=== PATIENT | male | born 1955 | race Caucasian/White ===

== ENCOUNTER 2018-12-17 06:50 | Emergency (ER) | payer OTHER ==
[2018-12-17 07:21] VITALS: BMI 32.0
[2018-12-17] MEDS ORDERED: MAG HYDROX/AL HYDROX/SIMETH 30 ML UNIT-DOSE CUP PO ONE (07:40)
[2018-12-17] MEDS ORDERED: ACETAMINOPHEN 1000 MG/100 ML VIAL (NON FORMULARY) IVPB ONE (07:41)
[2018-12-17] MEDS ORDERED: MAG HYDROX/AL HYDROX/SIMETH 30 ML UNIT-DOSE CUP ONE (07:44)
[2018-12-17] MEDS ORDERED: ACETAMINOPHEN INJECTION 100 ML IVPB ONE (07:44)
--- NOTE | 2018-12-17 07:51 | PDOC ---
*Physical Exam - Vital Signs Last Vital Signs Temp Pulse Resp BP Pulse Ox 98.4 F 90 18 153/88 97 12/17/18 07:19 12/17/18 07:19 12/17/18 07:19 12/17/18 07:19 12/17/18 07:19 ED Treatment Course - LABORATORY CBC & Chemistry Diagram: 12/17/18 08:00 12/17/18 08:00 Medical Decision Making - Medical Decision Making 12/17/18 07:49 The patient was seen and evaluated in conjunction with MARTIN Harry under my direct supervision, ancillary studies were reviewed. I agree with the plan as outlined by MARTIN Harry . *DC/Admit/Observation/Transfer Diagnosis at time of Disposition: Lower abdominal pain - Discharge Dispostion Disposition: HOME Condition at time of disposition: Stable - Referrals Referrals: Shayla Braden MD [Primary Care Provider] - 2 Days - Patient Instructions Printed Discharge Instructions: DI for Abdominal Pain-Adult Additional Instructions: Thank you for choosing [facility]. It was a pleasure taking care of you. Your labs were unremarkable Your CT scan showed no acute findings; please follow-up with your doctor regarding the other incidental findings noted Return to the Emergency Department if your symptoms worsen or persist, you have fever, shortness of breath, chest pain, severe abdominal pain, vomiting or other concerning symptoms. - Post Discharge Activity
[2018-12-17 08:20] LABS: URINE APPEARANCE CLEAR; URINE BILIRUBIN NEGATIVE (NEGATIVE); URINE COLOR YELLOW; URINE GLUCOSE (UA) NEGATIVE (NEGATIVE); URINE KETONE NEGATIVE (NEGATIVE); URINE LEUK ESTERASE NEGATIVE (NEGATIVE); URINE NITRITE NEGATIVE (NEGATIVE); URINE PROTEIN NEGATIVE (NEGATIVE); URINE UROBILINOGEN 0.2 mg/dL (0.2-1.0)
[2018-12-17 08:45] LABS: BILIRUBIN,TOTAL 0.5 mg/dL (0.2-1); BLOOD UREA NITROGEN 13.4 mg/dL (7-18); CALCIUM 9.4 mg/dL (8.5-10.1); CREATININE 0.8 mg/dL (0.55-1.3); POTASSIUM 4.6 mmol/L (3.5-5.1); TOT PROT 7.2 g/dl (6.4-8.2)
--- NOTE | 2018-12-17 08:47 | PDOC ---
History of Present Illness - General Chief Complaint: Pain Stated Complaint: PAIN,CHILLS Time Seen by Provider: 12/17/18 07:18 History Source: Patient Exam Limitations: No Limitations Past History - Past Medical History Allergies/Adverse Reactions: Allergies Allergy/AdvReac Type Severity Reaction Status Date / Time No Known Allergies Allergy Verified 12/17/18 07:21 Home Medications: Ambulatory Orders NK [No Known Home Medication] 12/17/18 Anemia: No Asthma: No Cancer: No Cardiac Disorders: No CVA: No COPD: No CHF: No Dementia: No Diabetes: No GI Disorders: No Disorders: No HTN: No Hypercholesterolemia: No Kidney Stones: No Liver Disease: No (not known ) Seizures: No Thyroid Disease: No - Reproductive History Testicular Surgery: No - Suicide/Smoking/Psychosocial Hx Smoking History: Never smoked Have you smoked in the past 12 months: No Information on smoking cessation initiated: No 'Breaking Loose' booklet given: 06/11/15 Hx Alcohol Use: No Drug/Substance Use Hx: No Substance Use Type: Alcohol Hx Substance Use Treatment: Yes *Physical Exam - Vital Signs Last Vital Signs Temp Pulse Resp BP Pulse Ox 98.4 F 90 18 153/88 97 12/17/18 07:19 12/17/18 07:19 12/17/18 07:19 12/17/18 07:19 12/17/18 07:19 - Physical Exam General Appearance: No: Apparent Distress Respiratory/Chest: positive: Lungs Clear, Normal Breath Sounds. negative: Respiratory Distress Cardiovascular: positive: Regular Rhythm, Regular Rate, S1, S2. negative: Murmur Gastrointestinal/Abdominal: positive: Tender (lower abdomen, RLQ>LLQ), Soft. negative: Distended, Guarding, Rebound, Hernia, Mass Male Genitalia: positive: other (+TTP along B/L inguinal region along with slight sharp pain underneath L scrotal region). negative: discharge, hernia Integumentary: negative: Rash Neurologic: positive: Alert, Normal Mood/Affect ED Treatment Course - LABORATORY CBC & Chemistry Diagram: 12/17/18 08:00 12/17/18 08:00 - ADDITIONAL ORDERS Additional order review: Laboratory Results 12/17/18 08:00 Urine Color Yellow Urine Appearance Clear Urine pH 7.0 D Ur Specific Blackwell 1.011 Urine Protein Negative Urine Glucose (UA) Negative Urine Ketones Negative Urine Blood Negative Urine Nitrite Negative Urine Bilirubin Negative Urine Urobilinogen 0.2 Ur Leukocyte Esterase Negative - RADIOLOGY Radiology Studies Ordered: Category Date Time Status SCROTUM AND CONTENTS US [US] Stat Ultrasound 12/17/18 07:45 Ordered - Medications Given in the ED: ED Medications Discontinued Medications Generic Name Dose Route Start Last Admin Trade Name Crystal PRN Reason Stop Dose Admin Acetaminophen 1,000 mg 12/17/18 07:41 12/17/18 08:00 Ofirmev Injection - IVPB 12/17/18 07:42 1,000 mg ONCE ONE Administration Al Hydroxide/Mg Hydroxide 30 ml 12/17/18 07:40 12/17/18 08:00 Mylanta Oral Suspension - PO 12/17/18 07:41 30 ml ONCE ONE Administration Medical Decision Making - Medical Decision Making 63 y/o M with no sig pmh presents with lower abd pain x 2 weeks along with feeling gassy and occasional constipation. Has been taking Metamucil which helps with constipation; last BM was yesterday which was normal. Also with dysuria x 2 weeks along with slight discomfort underneath scrotum. States he had 1 very small episode of NBNB emesis 2 weeks ago, but none since then. States appetite has otherwise been well. Is not sexually active. Denies prior surgeries. Denies fever, sob, cp, n/v/d, hematuria, unusual penile discharge, rectal pain. Patient was in rehab in the past for alcohol abuse; has been sober for 3 years. Denies drug use. Consider SBO (less suspicious), appendicitis, diverticulitis, UTI, epididymitis Plan: Labs, maalox, tylenol, scrotal US, reassess 12/17/18 08:39 Labs and urine unremarkable Scrotal US also unremarkable On repeat exam, patient still with mild TTP RLQ Will send for CT A/P to r/o acute pathology 12/17/18 10:16 CT A/P with no acute findings Other incidental findings noted Patient appears comfortable Given copy of CT findings and advised to f/u with his PCP Stable for dc 12/17/18 12:12 *DC/Admit/Observation/Transfer Diagnosis at time of Disposition: Lower abdominal pain - Discharge Dispostion Disposition: HOME Condition at time of disposition: Stable Decision to Admit order: No - Referrals Referrals: Shayla Braden MD [Primary Care Provider] - 2 Days - Patient Instructions Printed Discharge Instructions: DI for Abdominal Pain-Adult Additional Instructions: Thank you for choosing [facility]. It was a pleasure taking care of you. Your labs were unremarkable Your CT scan showed no acute findings; please follow-up with your doctor regarding the other incidental findings noted Return to the Emergency Department if your symptoms worsen or persist, you have fever, shortness of breath, chest pain, severe abdominal pain, vomiting or other concerning symptoms. - Post Discharge Activity
[2018-12-17 08:48] LABS: BASO % 1.3 % (0-2.0); EOS % 1.1 % (0-4.5); HEMATOCRIT 40.3 % (35.4-49); HEMOGLOBIN 13.8 GM/dL (11.7-16.9); LYMPH % 23.9 % (8-40); MCH 30.8 pg (25.7-33.7); MCHC 34.2 g/dl (32.0-35.9); MEAN CELL VOLUME 89.9 fl (80-96); MEAN PLT VOLUME 7.2 fl (7.5-11.1); MONO % 7.4 % (3.8-10.2); NEUT % 66.3 % (42.8-82.8); PLATELET COUNT 269 K/MM3 (134-434); RBC 4.49 M/mm3 (4.00-5.60); RDW 13.3 % (11.9-15.9); WHITE BLOOD COUNT 5.2 K/mm3 (4.0-10.0)
[2018-12-17] MEDS ORDERED: SODIUM CHLORIDE 1,000 ML IV STA (09:36)
[2018-12-17 12:22] VITALS: BP 146/79; PULSE 70; TEMP 98.9
== END 2018-12-17 12:44 | disposition home or self-care (01) ==
LOC: JER 06:50
PROC: 3E033NZ Introduction of Analgesics, Hypnotics, Sedatives into Peripheral Vein, Percutaneous Approach (ICD-10-PCS; principal; 2018-12-17)
DX: R10.30 Lower abdominal pain, unspecified (principal)
CPT/HCPCS: 36415; 74177-TC; 76870-TC; 80053; 81003; 85025; 87086; 99283-25; J0131

== ENCOUNTER 2018-12-22 12:09 | Emergency (ER) | payer OTHER | END 2018-12-22 15:20 | disposition home or self-care (01) | LOC: JERFT 12:09 ==

== ENCOUNTER 2018-12-23 05:51 | Emergency (ER) | payer OTHER | END 2018-12-23 12:30 | disposition home or self-care (01) | LOC: JER 05:51 ==

== ENCOUNTER 2019-01-11 16:08 | Emergency (ER) | payer OTHER ==
--- NOTE | 2019-01-11 16:23 | PDOC ---
History of Present Illness - General Stated Complaint: DIZZINESS Time Seen by Provider: 01/11/19 16:22 - History of Present Illness Initial Comments: 01/11/19 16:22 Mr. Nevarez is a 63 yo male w/ pmh of alcoholism who complains of parasthesias of lower extremities and the feeling "like he was going to pass out" earlier today. Patient has presented to this ED 3 times this month for similar complaints w/ normal CTAP, negative RPR and lyme/babesiosis evaluation, and grossly normal labs. Patient denies any recent drug or alcohol use. Elected to present today as he was concerned regarding his altered sensorium. The patient denies chest pain, shortness of breath, hand headache. Denies fever , chills, nausea, vomit, diarrhea and constipation. Denies dysuria, frequency, urgency and hematuria. Past History - Past Medical History Allergies/Adverse Reactions: Allergies Allergy/AdvReac Type Severity Reaction Status Date / Time No Known Allergies Allergy Verified 01/11/19 16:57 Home Medications: Ambulatory Orders NK [No Known Home Medication] 12/17/18 Anemia: No Asthma: No Cancer: No Cardiac Disorders: No CVA: No COPD: No CHF: No Dementia: No Diabetes: No GI Disorders: No Disorders: No HTN: No Hypercholesterolemia: No Kidney Stones: No Liver Disease: No (not known ) Seizures: No Thyroid Disease: No - Reproductive History Testicular Surgery: No - Psycho Social/Smoking Cessation Hx Smoking History: Never smoked Have you smoked in the past 12 months: No 'Breaking Loose' booklet given: 06/11/15 Hx Alcohol Use: No Drug/Substance Use Hx: No Substance Use Type: Alcohol Hx Substance Use Treatment: Yes Review of Systems - Review of Systems Comments:: 01/11/19 16:22 GENERAL/CONSTITUTIONAL: No fever or chills. No weakness. HEAD, EYES, EARS, NOSE AND THROAT: No change in vision. No ear pain or discharge. No sore throat. CARDIOVASCULAR: No chest pain or shortness of breath RESPIRATORY: No cough, wheezing, or hemoptysis. GASTROINTESTINAL: No nausea, vomiting, diarrhea or constipation. GENITOURINARY: No dysuria, frequency, or change in urination. MUSCULOSKELETAL: No joint or muscle swelling or pain. No neck or back pain. SKIN: No rash NEUROLOGIC: +RYLEE Tingling to lower extremities w/ additional non-specific presyncopal feeling. No headache, vertigo, loss of consciousness. ENDOCRINE: No increased thirst. No abnormal weight change HEMATOLOGIC/LYMPHATIC: No anemia, easy bleeding, or history of blood clots. ALLERGIC/IMMUNOLOGIC: No hives or skin allergy. *Physical Exam - Physical Exam Comments: 01/11/19 16:23 GENERAL: Awake, alert, and fully oriented, in no acute distress HEAD: No signs of trauma, normocephalic, atraumatic EYES: PERRLA, EOMI, sclera anicteric, conjunctiva clear ENT: Auricles normal inspection, hearing grossly normal, nares patent, oropharynx clear without exudates. Moist mucosa NECK: Normal ROM, supple, no lymphadenopathy, JVD, or masses LUNGS: No distress, speaks full sentences, clear to auscultation bilaterally HEART: Regular rate and rhythm, normal S1 and S2, no murmurs, rubs or gallops, peripheral pulses normal and equal bilaterally. ABDOMEN: Soft, nontender, normoactive bowel sounds. No guarding, no rebound. No masses EXTREMITIES: Normal inspection, Normal range of motion, no edema. No clubbing or cyanosis. NEUROLOGICAL: Cranial nerves II through XII grossly intact. Normal speech, normal gait, no focal sensorimotor deficits SKIN: Warm, Dry, normal turgor, no rashes or lesions noted. ED Treatment Course - LABORATORY CBC & Chemistry Diagram: 01/11/19 17:38 01/11/19 17:38 Medical Decision Making - Medical Decision Making 01/11/19 17:00 Mr. Nevarez is a 63 yo male w/ pmh as described who presents w/ non-specific complaints of parasthesias RYLEE and presyncope feeling. Patient will be evaluated for electrolyte abnormality and thyroid abnormality w/ additional EKG and cardiac labs. Patient denies drinking recently and CIWA score low. Etiology of symptoms unclear at this time. 01/11/19 17:16 Patient discussed with PCP who agreed with plan for evaluation and will see in office tomorrow at 1pm if patient discharged. Further evaluation pending at this time. Patient additionally endorsing transient vision blurriness earlier today in conjunction with other symptoms (now resolved). 01/11/19 18:24 EKG normal sinus rhythm. Patient tolerating PO w/out difficulty. 01/11/19 18:53 Patient labs grossly wnl as below. No concern for acute process at this time. Patient will f/u tomorrow w/ PCP as discussed. Discharging to home. Laboratory Results - last 24 hr 01/11/19 01/11/19 01/11/19 17:38 17:38 17:38 WBC 10.4 H RBC 4.58 Hgb 14.2 Hct 42.5 MCV 92.8 MCH 31.0 MCHC 33.4 RDW 14.1 Plt Count 243 MPV 6.8 L Absolute Neuts (auto) 9.6 H Neutrophils % 91.8 H D Lymphocytes % 4.3 L D Monocytes % 3.2 L Eosinophils % 0.1 D Basophils % 0.6 Nucleated RBC % 0 Sodium 138 Potassium 4.6 Chloride 104 Carbon Dioxide 28 Anion Gap 6 L BUN 18.2 H Creatinine 0.8 Est GFR (CKD-EPI)AfAm 110.96 Est GFR (CKD-EPI)NonAf 95.74 Random Glucose 116 H Calcium 8.7 Magnesium 2.2 Total Bilirubin 0.2 AST 11 L ALT 23 Alkaline Phosphatase 47 Troponin I Total Protein 6.6 Albumin 3.8 TSH 1.63 01/11/19 17:38 WBC RBC Hgb Hct MCV MCH MCHC RDW Plt Count MPV Absolute Neuts (auto) Neutrophils % Lymphocytes % Monocytes % Eosinophils % Basophils % Nucleated RBC % Sodium Potassium Chloride Carbon Dioxide Anion Gap BUN Creatinine Est GFR (CKD-EPI)AfAm Est GFR (CKD-EPI)NonAf Random Glucose Calcium Magnesium Total Bilirubin AST ALT Alkaline Phosphatase Troponin I < 0.02 Total Protein Albumin TSH Discharge - Discharge Information Problems reviewed: Yes Clinical Impression/Diagnosis: Pre-syncope, Leg paresthesia Disposition: HOME - Follow up/Referral Referrals: Shayla Braden MD [Primary Care Provider] - - Patient Discharge Instructions Patient Printed Discharge Instructions: DI for Numbness/tingling Additional Instructions: You were evaluated today in the ER for your symptoms. We performed laboratory evaluation as well as EKG which were all normal. We also discussed your case with your primary care provider who will see you in the office tomorrow at 1pm. We do not believe anything emergent is occurring at this time and think you are safe for discharge. Please follow-up with Dr. Braden tomorrow as discussed. Return to ER if any fevers, chills, new onset pain, or other concerning symptoms. - Post Discharge Activity CIWA Score Nausea/Vomitin-No Nausea/No Vomiting Muscle Tremors: None Anxiety: 0-No Anxiety, at Ease Agitation: 0-Normal Activity Paroxysmal Sweats: No Perspiration Orientation: 0-Oriented Tacttile Disturbances: 2-Mild Itch/Numbness/Burn Auditory Disturbances: 0-None Visual Disturbances: 0-None Headache: 2-Mild CIWA-Ar Total Score: 4 - Admission Criteria OASAS Guidelines: Admission for Medically Managed Detox: Requires at least one of the followin. CIWA greater than 12 2. Seizures within the past 24 hours 3. Delirium tremens within the past 24 hours 4. Hallucinations within the past 24 hours 5. Acute intervention needed for co occurring medical disorder 6. Acute intervention needed for co occurring psychiatric disorder 7. Severe withdrawal that cannot be handled at a lower level of care (continued vomiting, continued diarrhea, abnormal vital signs) requiring intravenous medication and/or fluids 8.
[2019-01-11 16:55] VITALS: PULSE 78; TEMP 98.3; BMI 29.5
[2019-01-11] MEDS ORDERED: SODIUM CHLORIDE 1,000 ML IV STA (17:15)
[2019-01-11] MEDS ORDERED: ACETAMINOPHEN 1000 MG/100 ML VIAL (NON FORMULARY) IVPB ONE (17:15)
[2019-01-11] MEDS ORDERED: ACETAMINOPHEN 500 MG TABLET (FP) PO ONE (17:56)
[2019-01-11 18:00] LABS: BASO % 0.6 % (0-2.0); EOS % 0.1 % (0-4.5); HEMATOCRIT 42.5 % (35.4-49); HEMOGLOBIN 14.2 GM/dL (11.7-16.9); LYMPH % 4.3 % (8-40); MCHC 33.4 g/dl (32.0-35.9); MEAN CELL VOLUME 92.8 fl (80-96); MEAN PLT VOLUME 6.8 fl (7.5-11.1); MONO % 3.2 % (3.8-10.2); NEUT % 91.8 % (42.8-82.8); PLATELET COUNT 243 K/MM3 (134-434); RBC 4.58 M/mm3 (4.00-5.60); RDW 14.1 % (11.9-15.9); WHITE BLOOD COUNT 10.4 K/mm3 (4.0-10.0)
[2019-01-11] MEDS ORDERED: ACETAMINOPHEN 325 MG TABLET (FP) ONE (18:08)
[2019-01-11 18:38] LABS: ALBUMIN 3.8 g/dl (3.4-5.0); BILIRUBIN,TOTAL 0.2 mg/dL (0.2-1); BLOOD UREA NITROGEN 18.2 mg/dL (7-18); CALCIUM 8.7 mg/dL (8.5-10.1); CREATININE 0.8 mg/dL (0.55-1.3); POTASSIUM 4.6 mmol/L (3.5-5.1); TOT PROT 6.6 g/dl (6.4-8.2)
--- NOTE | 2019-01-11 18:52 | PDOC ---
Attending Attestation - Resident Resident Name: DiegomaguethorHesham - ED Attending Attestation I have performed the following: I have examined & evaluated the patient, The case was reviewed & discussed with the resident, I agree w/resident's findings & plan, Exceptions are as noted - HPI HPI: 01/11/19 18:16 63 yo male w/ pmh of alcoholism who complains of parasthesias of lower extremities and the feeling of lightheaded. Pt. has been on steroids for several weeks. - Physicial Exam PE: 01/11/19 18:53 Vitals: Triage Vital signs reviewed General Appearance: no acute distress, well nourished well developed, Head: Atraumatic, Eyes: Pupils equal reactive round, extraocular movement intact Neck: Supple;No Nucal rigidity Chest Wall: Nontender Cardiac: Regular rate and rhythym, no murmurs, no rubs, no gallops, Lungs: Clear to auscultation bilateral, good air movement bilaterally, Abdomen: Soft, non distended, normal bowel sounds, non tender to palpation Genitourinary: Rectal: Exam deferred Extremities: Full range of motion to all extremities, no cyanosis, clubbing, or edema Skin: Warm and dry, Neuro: Strength intact to all extremities, Sensation intact to all extremities, gait normal Psych: normal mood, normal affect - Medical Decision Making 01/11/19 18:53 Patient presents with a variety of complaints complaints including bilateral paresthesias which have been chronic for the last few weeks he had just been seen in the emergency department has had blood work checked had a CAT scan of his abdomen pelvis performed a few weeks ago which was unremarkable for some back discomfort His EKG was nonischemic his labs are unremarkable his troponin was negative his neurologic examination was nonfocal his abdominal examination was benign I have spoken with his primary care provider we have arranged for him to follow- up tomorrow at 1 PM for further evaluation patient is in agreement with plan Findings, need for follow-up and strict return instructions discussed with patient.
[2019-01-11 19:14] LABS: ANISOCYTOSIS 3+; PLATELET ESTIMATE NORMAL
[2019-01-11 19:20] VITALS: BP 154/70
--- NOTE | 2019-01-12 10:05 | EKG ---
Test Reason : Blood Pressure : / mmHG Vent. Rate : 061 BPM Atrial Rate : 061 BPM P-R Int : 192 ms QRS Dur : 104 ms QT Int : 404 ms P-R-T Axes : 063 006 046 degrees QTc Int : 406 ms NORMAL SINUS RHYTHM CANNOT RULE OUT ANTERIOR INFARCT , AGE UNDETERMINED ABNORMAL ECG NO PREVIOUS ECGS AVAILABLE Confirmed by Jordan Tang MD ([id number]) on 01/12/2019 10:04:49 AM Referred By: Confirmed By:Jordan Tang MD
== END 2019-01-11 19:28 | disposition home or self-care (01) ==
LOC: JER 16:08
DX: R55 Syncope and collapse (principal); R20.2 Paresthesia of skin; Z79.52 Long term (current) use of systemic steroids
CPT/HCPCS: 36415; 80053; 83735; 84443; 84484; 85025; 93005; 93010; 99284-25

== ENCOUNTER 2019-02-26 21:18 | Emergency (ER) | payer OTHER ==
[2019-02-26 21:29] VITALS: BP 120/59; PULSE 85; TEMP 97.6; BMI 26.6
--- NOTE | 2019-02-26 23:14 | PDOC ---
History of Present Illness - General Chief Complaint: Injury Stated Complaint: FALL,HEAD INJURY Time Seen by Provider: 02/26/19 21:30 - History of Present Illness Initial Comments: Mr. Nevarez is a 63 y/o male with PMH significant for alcohol use disorder presenting today s/p fall. Reports that he accidentally defecated on himself at home and was leaning over to clean up when he fell and hit his head. Unsure of LOC. Denies dizziness or palpitations prior to fall. Denies chest pain/ shortness of breath. Reports that he has had abdominal pain in the past but not today. Denies urinary symptoms. Denies vision changes. Reports mild headache. Denies nausea/vomiting. Reports drinking a few beers this afternoon before 4pm. Past History - Past Medical History Allergies/Adverse Reactions: Allergies Allergy/AdvReac Type Severity Reaction Status Date / Time No Known Allergies Allergy Verified 02/26/19 21:28 Home Medications: Ambulatory Orders NK [No Known Home Medication] 12/17/18 Anemia: No Asthma: No Cancer: No Cardiac Disorders: No CVA: No COPD: No CHF: No Dementia: No Diabetes: No GI Disorders: No Disorders: No HTN: No Hypercholesterolemia: No Kidney Stones: No Liver Disease: No (not known ) Seizures: No Thyroid Disease: No - Reproductive History Testicular Surgery: No - Psycho Social/Smoking Cessation Hx Smoking History: Unknown if ever smoked Have you smoked in the past 12 months: No Information on smoking cessation initiated: No 'Breaking Loose' booklet given: 06/11/15 Hx Alcohol Use: No Drug/Substance Use Hx: No Substance Use Type: Alcohol Hx Substance Use Treatment: Yes Trauma Specific PMHX - Complaint Specific PMHX Arthritis: Yes (knees and ankles) Review of Systems - Review of Systems Comments:: GENERAL/CONSTITUTIONAL: No fever or chills. No weakness._ HEAD, EYES, EARS, NOSE AND THROAT: No change in vision. No change in hearing. No sore throat._ CARDIOVASCULAR: No chest pain or shortness of breath_ RESPIRATORY: Denies cough, hemoptysis_ GASTROINTESTINAL: No nausea, vomiting. Reports diarrhea. GENITOURINARY: No dysuria, frequency, or change in urination._ MUSCULOSKELETAL: No joint or muscle swelling or pain. No neck or back pain._ SKIN: No rash_ NEUROLOGIC: Reports headache. Denies vertigo, or change in strength/sensation._ ENDOCRINE: No increased thirst. No abnormal weight change_ HEMATOLOGIC/LYMPHATIC: No anemia, easy bleeding, or history of blood clots._ ALLERGIC/IMMUNOLOGIC: No hives or skin allergy._ *Physical Exam - Vital Signs Last Vital Signs Temp Pulse Resp BP Pulse Ox 97.6 F 85 18 120/59 L 97 02/26/19 21:28 02/26/19 21:28 02/26/19 21:28 02/26/19 21:28 02/26/19 21:28 - Physical Exam Comments: GENERAL: Awake, alert, and oriented to person/place/time, in no acute distress_ HEAD: 1 cm linear laceration to posterior scalp, normocephalic EYES: PERRLA, EOMI, sclera anicteric, conjunctiva clear_ ENT: Hearing grossly normal, nares patent, oropharynx clear without exudates. No uvular deviation. Moist mucosa_ NECK: TTP midline c-spine, supple, no lymphadenopathy, JVD, or masses_ LUNGS: No distress, speaks in full sentences, clear to auscultation bilaterally _ HEART: Regular rate and rhythm, normal S1 and S2, no murmurs appreciated, peripheral pulses normal and equal bilaterally._ ABDOMEN: Soft, nontender, normoactive bowel sounds. No guarding, no rebound. No masses_ EXTREMITIES: Normal inspection, Normal range of motion, no edema. No clubbing or cyanosis_ NEUROLOGICAL: CN II-XII tested and intact. Sensation intact to sharp/dull differentiation in all extremities. Motor: Normal tone and bulk. No abnormal movements appreciated. No pronator drift. Strength tested and 5/5 in bilateral wrist flexion/extension, elbow flexion/extension, shoulder abduction, straight leg raise, knee flexion/ extension, ankle dorsiflexion/plantarflexion. Patient ambulates with a steady gait. Coordination: Finger to nose and heel to garcia testing intact bilaterally. SKIN: Warm, Dry, normal turgor, no rashes or lesions noted_ Procedures - Laceration/Wound Repair Posterior Head Wound Length: to 2.5 cm Wound Explored: clean, no foreign body present Wound's Depth, Shape: superficial, linear Irrigated w/ Saline: Yes Betadine Prep: Yes Wound Debrided: minimal Wound Repaired With: [place] Number of Sutures: 4 Layer Closure: No Sterile Dressing Applied: Yes Splint Applied: No Sling Applied: No Progress: Verbal consent was obtained, and patient was provided with risks and alternatives to the procedure. Wound was copiously irrigated with sterile water , cleansed with hydrogen peroxide. Wound carefully explored and no foreign body , tendon injury, or nonviable tissue were noted. Using sterile technique cristina was used to reapproximate the wound. 4 cristina were placed. Patient tolerated procedure well, no complications. Patient advised to look for and return for any signs of infection such as redness, swelling, discharge, or worsening pain. Patient advised to return for suture removal within 7-10 days. ED Treatment Course - RADIOLOGY Radiology Studies Ordered: Category Date Time Status CERVICAL SPINE CT W/O CONTR [CT] Stat CT Scan 02/26/19 21:[address] WITHOUT CONTRAST [CT] Stat CT Scan 02/26/19 21:58 Ordered Medical Decision Making - Medical Decision Making 63M with hx of alcohol use disorder presenting s/p fall with posterior scalp laceration. Given patient's hx of ETOH use and ETOH consumption this afternoon will obtain -CT head, CT c-spine -EKG 02/26/19 23:21 EKG shows 1st degree AV block, 73 bpm, no ST elevation/depression, QTc 416. 02/27/19 01:10 CT head shows no acute intracranial hemorraghe, mass effect, or midline shift. Moderate left parietal occipital scalp swelling and subcutaneous hematoma. 02/27/19 01:16 CT neck shows no acute fracture or subluxation. Nonspecific enlarged heterogenous thyroid noted on exam. 02/27/19 01:48 Laceration repaired. Plan to d/c home, f/u PCP Dr. Braden, thyroid, staple removal. Discharge - Discharge Information Problems reviewed: Yes Clinical Impression/Diagnosis: Fall Qualifiers: Encounter type: initial encounter Qualified Code(s): W19.XXXA - Unspecified fall, initial encounter Condition: Stable Disposition: HOME - Admission No - Follow up/Referral Referrals: Mak Kilgore MD [Staff Physician] - Shayla Braden MD [Primary Care Provider] - - Patient Discharge Instructions Patient Printed Discharge Instructions: DI for Laceration Repair -- Cristina Additional Instructions: Please make a follow up appointment with Dr. Braden on Friday to follow up, and for a referral for an ultrasound of the thyroid. Please see Dr. Braden's office or return to the ER for staple removal in 7-10 days. If you experience any new, worsening, or concerning symptoms, including severe headache, fall, loss of consciousness, seizures, severe pain, or any other concerns, please return to the emergency department. - Post Discharge Activity
[2019-02-26] MEDS ORDERED: ACETAMINOPHEN 500 MG TABLET (FP) PO ONE (23:29)
[2019-02-27] MEDS ORDERED: ACETAMINOPHEN 325 MG TABLET (FP) ONE (00:47)
[2019-02-27] MEDS ORDERED: DIPHTH,PERTUSS(ACELL),TET 0.5 ML DISP.SYRIN IM ONE ×2 (01:49→02:02)
--- NOTE | 2019-02-27 01:49 | PDOC ---
Documentation entered by Mindy Joaquin SCRIBE, acting as scribe for Aracely Brothers MD. Aracely Brothers MD: This documentation has been prepared by the Jemal roberts Joy, SCRIBE, under my direction and personally reviewed by me in its entirety. I confirm that the documentation accurately reflects all work, treatment, procedures, and medical decision making performed by me. Attending Attestation - Resident Resident Name: Jordan Lopez - ED Attending Attestation I have performed the following: I have examined & evaluated the patient, The case was reviewed & discussed with the resident, I agree w/resident's findings & plan, Exceptions are as noted - HPI HPI: 02/26/19 21:56 The patient is a 63 year old male with significant past medical history of neuropathy and alcoholism (4 beers today between 2 and 4 PM) who presents to the ED s/p fall and hit his head around 7 pm tonight. As per patient when he was bending over he lost his balance and fell hitting his head. Patients housemate noticed the fall and called EMS. Denies shortness of breath, dizziness, loss of consciousness, heart palpitations , and abdominal pain, chest pain. Allergies: NKA 02/27/19 01:47 - Physicial Exam PE: 02/27/19 01:45 awake alert posterior scalp with laceration . linear. no midline cervical spinal tenderness. lungs clear bilat heart rrr no mrg abd soft nt nd ext wwp. noted varicose veins. noted stool on legs. moves all four ext. good strength. - Medical Decision Making 02/27/19 01:47 63 yo male h/o etoh ABUSE HERE S/P FALL pt states was walking down hallway, was incontinent of stool, bent down to pick it up and slipped. hit his head. states he blacked out. no c/o extremity pain. no cp no palpitations. last beer earlier today. on exam pt posterior scalp laceration other [place] nontender exam plan ct head cervical spin dc home told to follow up with dr barrera week following. noted thyroid noduls on ct spine. told will need outpatient thyroid ultrasound. dc home staple in 7 - 10 days. will give him tetanus shot.
--- NOTE | 2019-02-28 20:12 | EKG ---
Test Reason : Blood Pressure : / mmHG Vent. Rate : 073 BPM Atrial Rate : 073 BPM P-R Int : 214 ms QRS Dur : 098 ms QT Int : 378 ms P-R-T Axes : 064 015 048 degrees QTc Int : 416 ms SINUS RHYTHM WITH 1ST DEGREE A-V BLOCK CANNOT RULE OUT ANTERIOR INFARCT (CITED ON OR BEFORE 11-JAN-2019) ABNORMAL ECG WHEN COMPARED WITH ECG OF 11-JAN-2019 17:32, NO SIGNIFICANT CHANGE WAS FOUND Confirmed by SUE PATTERSON MD ([id number]) on 02/28/2019 8:12:19 PM Referred By: Confirmed By:SUE PATTERSON MD
== END 2019-02-27 03:19 | disposition home or self-care (01) ==
LOC: JER 21:18
PROC: 3E0234Z Introduction of Serum, Toxoid and Vaccine into Muscle, Percutaneous Approach (ICD-10-PCS; principal; 2019-02-26)
PROC: 0HQ0XZZ Repair Scalp Skin, External Approach (ICD-10-PCS; 2019-02-26)
DX: S01.01XA Laceration without foreign body of scalp, initial encounter (principal); W01.0XXA Fall on same level from slipping, tripping and stumbling without subsequent striking against object, initial encounter; Y93.89 Activity, other specified; Y92.098 Other place in other non-institutional residence as the place of occurrence of the external cause; Y99.8 Other external cause status; F10.10 Alcohol abuse, uncomplicated; M13.861 Other specified arthritis, right knee; M13.862 Other specified arthritis, left knee; M13.871 Other specified arthritis, right ankle and foot; M13.872 Other specified arthritis, left ankle and foot; R15.9 Full incontinence of feces
CPT/HCPCS: 12001-25; 70450-TC; 72125-TC; 90471; 90715; 93005; 93010; 99282-25